=== PATIENT | female | born 1970 | race African-American/Black ===

== ENCOUNTER 2024-06-25 10:11 | Emergency (ER) | payer BC, SELFPAY ==
[2024-06-25 10:31] VITALS: BP 152/82
[2024-06-25 12:15] VITALS: BP 146/80
[2024-06-25 13:21] LABS: % Basophils 0.3 % (0-2); % Eosinophils 0.7 % (0-6); % Immature Granulocytes 0.2 % (0-0.5); % Lymphocytes 29.4 % (20.5-51.1); % Monocytes 9.6 % (1.7-9.3); % Neutrophils 59.8 % (42.2-75.2); Absolute Lymphocytes 1.8 10^3/uL (1.2-3.4); Absolute Monocytes 0.6 10^3/uL (0.1-0.6); Absolute Neutrophils 3.6 10^3/uL (1.4-6.5); Hematocrit 41.1 % (37.0-47.0); Hemoglobin 13.6 g/dL (12.0-16.0); Mean Corp Hgb Conc. 33.1 g/dL (33.0-37.0); Mean Corpuscular Hgb 26.8 pg (27.0-31.0); Mean Corpuscular Volume 80.9 fL (81.0-99.0); Mean Platelet Volume 9.9 fL (7.4-10.4); Nucleated Red Blood Cells % 0 %; Platelet Count 255 10^3/uL (130-400); Red Blood Cell Count 5.08 10^6/uL (4.20-5.40); Red Cell Dist. Width 14.4 % (11.5-14.5)
[2024-06-25 13:41] LABS: ALT (SGPT) 23 U/L (0-35); AST (SGOT) 33 U/L (14-36); Albumin 4.9 g/dl (3.5-5.0); Alkaline Phosphatase 122 U/L (38-126); Blood Urea Nitrogen 19 mg/dl (7-17); Calcium 10.1 mg/dl (8.4-10.2); Chloride 105 mmol/L (98-107); Glucose 73 mg/dl (70-99); Sodium 138 mmol/L (135-145); Total Protein 8.1 g/dl (6.3-8.2); eGFR > 60.00
[2024-06-25 13:54] LABS: Carbon Dioxide 23 mmol/L (22-30); Total Bilirubin 0.6 mg/dl (0.2-1.3)
--- NOTE | 2024-06-25 14:23 | ED.SKININJ ---
HPI-Injury
<Deja Escoto, RN NEW GRADUATE - Last Filed: 06/26/24 17:50>
General
Chief Complaint: Skin Problem
Source: patient
Exam Limitations: none
Time Seen by Provider: 06/25/24 12:41
Nursing documentation reviewed up to this point in time: agreed with
History of Present Illness-Injury
Initial Injury comments:
54-year-old female with inflammation and pain lateral aspect of right breast at site of previous breast reduction 9 yrs ago with scar/keloid development, Had cyst removalin same area 2 years ago. Four weeks ago expressed 'cheesy' foul smelling
material. 3 days ago felt nauseous, woke up with pain in the area. It is red and tender. Denies fever/chills.
Pt went to 3 days ago and has been on Bactrim DS has had total of 5 doses.
Past History
<Deja Escoto, RN NEW GRADUATE - Last Filed: 06/26/24 17:50>
Past History
ED Past Surgical History: Urological (Breast reduction, hysterectomy)
Social History
Tobacco: Non-smoker
Alcohol: Occasional
Personal:
Living: with family
Employment: Employed
Review of Systems
<Deja Escoto, RN NEW GRADUATE - Last Filed: 06/26/24 17:50>
Review of Systems
Allergies reviewed?: Yes
All Other Systems: ROS reviewed and negative except as documented in HPI and ROS
Constitutional: Denies fever or chills
ABD/GI: Denies nausea or vomiting
Skin: Reports other (infection right breast)
Phy Exam
<Deja Escoto, RN NEW GRADUATE - Last Filed: 06/26/24 17:50>
Physical Exam
Physical Exam:
GENERAL: No acute distress. A&Ox3.
CONSTITUTIONAL: Afebrile.
RESPIRATORY: Regular respirations, nonlabored, lungs clear.
CARDIOVASCULAR: Regular rate and rhythm, no murmurs, no rubs.
GI: Soft, nontender, normal BS
MUSCULOSKELETAL: Moves with ease. Well perfused.
SKIN: Warm, dry, normal. Tender keloid scar right lateral breast with small amount serous drainage, mild surrounding redness to 2 cm out. Mild local swelling.
PSYCH: Normal mood and affect. Well kept, interactive and appropriate
NEUROLOGIC: Awake, alert and oriented. No focal neurological deficits
Course
<Deja Escoto, RN NEW GRADUATE - Last Filed: 06/26/24 17:50>
Orders/Labs/Results
Orders:
Orders
06/25/24 13:01
US Breast Right Ltd WDC Urgent
Reason for Exam: CONCERN FOR ABSCESS UNDER KELOID SCAR
06/25/24 13:05
Complete Blood Count/With Diff Urgent
Comprehensive Metabolic Panel Urgent
06/25/24 16:36
Wound Culture [Wound/Abscess/Other Culture] Urgent
WOLF Source: Abscess
Specimen Description:
Date Specimen was Collected: 06/25/24
Time Specimen was Collected: 16:35
Comment: right breast
Abnormal Lab Results
06/25/24
13:05
MCV 80.9 L fL
(81.0-99.0)
MCH 26.8 L pg
(27.0-31.0)
Monocytes % 9.6 H %
(1.7-9.3)
BUN 19 H mg/dl
(7-17)
06/25/24 13:05
06/25/24 13:05
Vital Signs
Initial and Last Documented VS:
Initial Vital Signs
Temp Pulse Resp BP Pulse Ox
98.1 F 89 18 152/82 100
06/25/24 10:31 06/25/24 10:31 06/25/24 10:31 06/25/24 10:31 06/25/24 10:31
Last Documented Vital Signs
Temp Pulse Resp BP Pulse Ox
98.1 F 69 16 139/87 97
06/25/24 10:31 06/25/24 16:43 06/25/24 16:43 06/25/24 16:43 06/25/24 16:43
Assistant District Attorney consulted with Physician
Assistant District Attorney consulted with physician?: Yes
Name of Physician Consulted: Florencia
<Dolores Don MD - Last Filed: 06/25/24 15:11>
Orders/Labs/Results
Orders:
Orders
06/25/24 13:01
US Breast Right Ltd WDC Urgent
Reason for Exam: CONCERN FOR ABSCESS UNDER KELOID SCAR
06/25/24 13:05
Complete Blood Count/With Diff Urgent
Comprehensive Metabolic Panel Urgent
06/25/24 16:36
Wound Culture [Wound/Abscess/Other Culture] Urgent
WOLF Source: Abscess
Specimen Description:
Date Specimen was Collected: 06/25/24
Time Specimen was Collected: 16:35
Comment: right breast
Abnormal Lab Results
06/25/24
13:05
MCV 80.9 L fL
(81.0-99.0)
MCH 26.8 L pg
(27.0-31.0)
Monocytes % 9.6 H %
(1.7-9.3)
BUN 19 H mg/dl
(7-17)
06/25/24 13:05
06/25/24 13:05
Vital Signs
Initial and Last Documented VS:
Initial Vital Signs
Temp Pulse Resp BP Pulse Ox
98.1 F 89 18 152/82 100
06/25/24 10:31 06/25/24 10:31 06/25/24 10:31 06/25/24 10:31 06/25/24 10:31
Last Documented Vital Signs
Temp Pulse Resp BP Pulse Ox
98.1 F 69 16 139/87 97
06/25/24 10:31 06/25/24 16:43 06/25/24 16:43 06/25/24 16:43 06/25/24 16:43
Procedures
<Deja Escoto, RN NEW GRADUATE - Last Filed: 06/26/24 17:50>
Incision/Drainage/Joint Aspiration
Lateral aspect right breast:
Anethesia: 1% Lidocaine
Preparation: cleaned with Betadine
Type of procedure: incise and drain
Nature of site: abscess
Description of abscess: less than 3cm
Loculations broken up: Yes
How much fluid was obtained?: large amount
Fluid description: purulent
Treatment: packed with gauze and antibiotics started (Patient will continue her Bactrim. Nonstick and gauze dressing applied)
<Deja Escoto, RN NEW GRADUATE - Last Filed: 06/26/24 17:50>
MDM/Problems Addressed
Differential Diagnosis Includes:
infected cyst, abscess
MDM/Problems Addressed:
54-year-old female with inflammation and pain lateral aspect of right breast at site of previous breast reduction 9 yrs ago with scar/keloid development, Had cyst removal in same area 2 years ago. Four weeks ago expressed 'cheesy' foul smelling
material. 3 days ago felt nauseous, woke up with pain in the area. It is red and tender. Denies fever/chills.
Pt went to 3 days ago and has been on Bactrim DS has had total of 5 doses.
Afebrile, NAD
CBC, CMP unremarkable
US breast radiology report read: Complex sebaceous/inclusion cyst. With clinical history this is likely infected.
Case discussed with Dr. Don who examined pt
Consulted Breast surgeon Dr. Stevens who requests I&D, culture and she will follow up.
Patient tolerated I&D well
wound culture pending
<Deja Escoto NP - Last Filed: 06/26/24 17:50>
*Critical Care Note
Total Time (30-74mins, 75-104mins- exclusive of procedures): Not Applicable
ED Attending Note
<Deja Escoto NP - Last Filed: 06/26/24 17:50>
-
Portions of this chart may have been created with voice recognition software.� Occasional wrong word or��sound alike� substitutions may have occurred due to the inherent limitations of voice recognition software.
<Dolores Don MD - Last Filed: 06/25/24 15:11>
ED Attending Note
Patient seen and examined by attending physician: Yes
I performed the substantive portion of visit, reviewed & personally made and approve the management plan that is documented in note by myself or LAKSHMI.: Yes
ED Attending Note:
54-year-old female with a history of breast reduction, complicated by cyst development. Sometime ago, at least a month if not longer, she did notice drainage from this area that was thick' cheesy', but that is since resolved. However, in the last
3 to 4 days, areas become painful, with a small opening, and serosanguineous drainage. She denies fever, chills, purulent discharge, or other complaints. She was seen in urgent care and placed on Bactrim without relief of symptoms. Here on exam,
patient has a area of tenderness to palpation, redness, warmth, without active drainage or fluctuance. Ultrasound consistent with a cyst which may be infected. Will consult with Dr Stevens re: further recommendations re:revision of outpt abx vs IV
abx.
Discharge Plan
Departure
Patient Disposition: Home (Routine Discharge)
Date of Disposition: 06/25/24
Time of Disposition: 16:28
Patient with high blood pressure during this ER visit?: No
Condition: Good
Discharge Problem:
Abscess of right breast
Instructions: Skin Abscess
Referrals:
China Stevens MD [Active] - Next open appointment
UNKNOWN - PT DOES,NOT KNOW [Family Provider] -
Activity Restrictions/Additional Instructions:
As we discussed, continue your Bactrim as ordered
Cleanse the area daily with soap and water
Tylenol or ibuprofen as needed for pain
Warm moist compress to the area 2-3 times a day for 15 minutes, allow the warm shower water to run over the area or soak in a warm tub
If the packing has not fallen out by 3 days, remove it on .
Call Dr. Stevens's office tomorrow morning and make next available appointment.
Interventions
Interventions:
*Risk Screen - Suicide Last Done: 06/25/24 10:31
*General Assessment Last Done: 06/25/24 10:31
*Neglect/Abuse Screening Last Done: 06/25/24 10:31
ED- Fall Risk Assessment Last Done: 06/25/24 16:43
*ED COVID-19 Vaccine History Last Done: 06/25/24 12:15
*Nursing Disposition Last Done: 06/25/24 16:43
ED-Skin Assessment Last Done: 06/25/24 16:43
Discharge Date and Time
Discharge Date/Time: 06/25/24 16:43
Print Language: URDU
[2024-06-25 14:42] VITALS: BP 141/81
[2024-06-25 16:43] VITALS: BP 139/87
== END 2024-06-25 16:43 | disposition home or self-care (01) ==
LOC: EMR 10:11
PROVIDERS: Registered Nurse; EMERGENCY PHYSICIAN Emergency Medicine
DX: N61.1 Abscess of the breast and nipple (principal); R11.0 Nausea; Z88.0 Allergy status to penicillin
CPT/HCPCS: 99284; 10060; 76642; 80053; 85025; 87070; 87147; 87205

== ENCOUNTER → 2024-07-17 11:02 | Outpatient (REF) | payer BC, SELFPAY | LOC: CLAB 11:02 | PROVIDERS: ATTENDING PHYSICIAN Surgery | DX: N61.1 Abscess of the breast and nipple (principal) | CPT/HCPCS: 88307 ==